=== PATIENT | female | born 1985 | race Caucasian/White ===

== ENCOUNTER → 2016-05-22 | Outpatient (CLI) | payer OTHER ==
[~2016-05-22] MED LIST: AZIT-60 PO; DICY1TAB25 PO; HYDR-5688 PO; IBUP-103 PO; OMEP20CA59 PO; PRED20TA PO; ZFRODT/8 SL
== END | disposition home or self-care (01) ==
LOC: C.PATHSPEC 17:05
PROVIDERS: ATTEND Plastic Surgery
DX: L82.1 Other seborrheic keratosis (principal)

== ENCOUNTER → 2016-06-18 | Outpatient (CLI) | payer OTHER | END | disposition home or self-care (01) | LOC: C.LABSPEC 14:49 | PROVIDERS: ATTEND Family Medicine | DX: J02.9 Acute pharyngitis, unspecified (principal) ==

== ENCOUNTER 2016-11-05 11:31 | Emergency (ER) | payer OTHER ==
[~2016-11-05] VITALS: Ht 154.9 cm; Wt 84.5 kg
[~2016-11-05 11:31] MED LIST changes: -AZIT-60 PO; -HYDR-5688 PO; -IBUP-103 PO; -PRED20TA PO
[2016-11-05 11:34] VITALS: BP 141/99; PULSE 109; TEMP 36.7; O2SAT 96; Ht 154.9 cm; Wt 84.5 kg
[2016-11-05] MEDS ORDERED: HYDR-5688 PO ×2 (12:17→12:44)
[2016-11-05] MEDS ORDERED: PRED20TA PO (12:17)
[2016-11-05] MEDS ORDERED: AZIT250T5 PO (12:17)
--- NOTE | 2016-11-05 12:19 | EMERGENCY ROOM VISIT NOTE ---
History First contact with patient: 12:00 Chief Complaint: EAR PAIN Stated Complaint: BOTH EARS ARE COMPLETELY SHUT/SWOLLEN History of Present Illness The patient is a 31 year old female who presents to the Emergency Room via private vehicle accompanied by mother with complaints of "both ears are completely shut/swollen". The patient states she has a history of plaque psoriasis, and notes that yesterday she developed bilateral pain/discomfort in her ears. She points to the general here region as a location of pain that she rates as a 9/10. She states this feels identical to an episode she had in August , and was seen by her family doctor and it was found to be from psoriasis. She states now her hearing is also slightly muffled. She states she is placed upon antibiotics, steroids, nausea as well as pain meds at that time. She denies any submersion in water, fevers, ear trauma. Review of Systems A complete 6-point Review of Systems was discussed with the patient, with pertinent positives and negatives listed in the History of Present Illness. All remaining Review of Systems questions can be considered negative unless otherwise specified. Past Medical/Surgical History Medical Problems: (1) Appendectomy (2) Asthma (3) Clostridium difficile infection (4) Dilation and curettage (5) ovarian cysts (6) Psoriasis (7) Tonsillectomy Family History Cancer Diabetes mellitus Heart disease Kidney disease Kidney stones Social History Smoking Status: Never Smoker Alcohol Use: occasionally Drug Use: none Marital Status: single Housing Status: other Occupation Status: employed Current/Historical Medications Scheduled Azithromycin (Zithromax), 1 PKT PO UD Prednisone (Prednisone), 0 PO DAILY Scheduled PRN Hydrocodone/Acetaminophen 5MG/325MG ([place] 5MG/325MG), 1-2 TABLET PO Q6 PRN for Pain Ibuprofen Tab (Advil), 800 MG PO UD PRN for Pain Physical Exam Vital Signs Date Time Temp Pulse Resp B/P (MAP) Pulse Ox O2 Delivery O2 Flow Rate FiO2 11/05/16 11:34 36.7 109 18 141/99 96 Room Air Physical Exam VITAL SIGNS - Vital signs and nursing notes were reviewed. Afebrile, hypertensive 141/99, tachycardic rate of 109 bpm, and is saturating well on room air 96%. GENERAL -31-year-old female appearing her stated age who is in no acute distress. Communicates well with provider and answers questions appropriately. SKIN - there is evidence of plaque on the patient's left arm, and also around her ears bilaterally. There is also intra ear canal plaque development. HEAD - NC/AT. EYES - PERRL with EOMI bilaterally. Sclera anicteric. Palpebral conjunctiva pink and moist with no injection noted. EARS - there is plaque development around the ears, there is no mastoid tenderness bilaterally. There is tenderness upon insertion of the speculum into the ear canals. There is evidence of plaque development of any internal ears. TMs unremarkable. No cerumen. No evidence of otitis externa. No evidence of inspection. NOSE - Midline and without cyanosis. No epistaxis or purulent drainage noted. Septum midline without deviation or septal hematoma noted. MOUTH/OROPHARYNX - Without perioral cyanosis. Buccal mucosa pink and moist and without leukoplakia. Tongue midline with equal elevation of palate bilaterally. No tonsillar hypertrophy, erythema, or exudates noted. Fair dentition noted. NECK - Neck with FROM. Supple to palpation. Minimal anterior cervical lymphadenopathy noted. No nuchal rigidity. No meningismus. LUNGS - Chest wall symmetric without accessory muscle use, intercostals retractions, or central cyanosis. Normal vesicular breath sounds CTA B/L. No wheezes, rales, or rhonchi appreciated. CARDIAC - RRR with S1/S2. No murmur, rubs, or gallops appreciated. EXTREMITIES - No clubbing or peripheral cyanosis. No pretibial edema present. + 5/5 strength noted in UE/LE bilaterally. NEUROLOGIC - Cranial nerves II through XII grossly intact. Sensory intact to light touch throughout. Patellar reflexes +2/4. PSYCH - A&Ox3 and cooperates fully with examiner. Pt is very pleasant and interacts well with examiner. Medical Decision & Procedures Medical Decision Patient was seen and evaluated as above. She presents to us today with spontaneous development of bilateral ear discomfort. It is unlikely this is otitis externa or otitis media. She is a history of plaque psoriasis since the age of 16. She does not take any chronic medications for this. She does have visual plaques on the left arm, and around the ears. Intra-ear canal inspection does reveal that she is likely experiencing plaque development inside the ear canals. There is no evidence of otitis media or externa. There is no mastoid tenderness. There is also bilateral anterior cervical lymphadenopathy, without evidence of throat infection. No evidence of meningitis or encephalitis upon my examination. She'll be treated with prednisone for the psoriasis, but also a Z-Jose in case there is underlying infection of which I do not want to exacerbate with the prednisone. She will also be given a short course of pain medication, as she does appear to be extremely uncomfortable on examination of the ears. It is important that she is nontoxic upon my overall examination. I was notified by [facility] that they do not have the prescription of [place], therefore this was canceled and sent to the [facility]'s pharmacy. The patient is to follow-up with her family doctor. She is to return with worsening. The patient was educated upon worrisome symptoms in which to return, had questions prior to discharge, and was discharged home in good condition. In evaluation treatment this patient following differential diagnoses were entertained: Meningitis, encephalitis, mastoiditis, otitis media, otitis externa , plaque psoriasis exacerbation, among others. [place] Drug Monitoring Program Search Results: patient reviewed within database, no issues identified Impression Primary Impression: Discomfort of both ears Additional Impression: Plaque psoriasis Departure Information Dispostion Home / Self-Care Condition GOOD Prescriptions Hydrocodone/Acetaminophen 5MG/325MG ([place] 5MG/325MG) Tab 1-2 TABLET PO Q6 Y for Pain, #10 TAB For Initial Treatment Prov: Eagle Rai PA-C 11/05/16 Azithromycin (ZITHROMAX) 250 Mg Tab 1 PKT PO UD for 5 Days, #6 TAB Prov: Eagle Rai PA-C 11/05/16 Prednisone (Prednisone) 20 Mg Tab 0 PO DAILY, #18 TAB 3 DAILY FOR 3 DAYS, THEN 2 DAILY FOR 3 DAYS, THEN 1 DAILY FOR 3 DAYS. Prov: Eagle Rai PA-C 11/05/16 Referrals Frank Berg M.D. (PCP) Patient Instructions [facility] Additional Instructions You have been treated in the Emergency Department for an ear pain that is likely coming from psoriasis You were prescribed azithromycin to be taken as directed which is 500 mg on day one, and 250 mg on days 2 through 5.. This is an antibiotic. All antibiotics have the potential to cause diarrhea. Stop this medication and contact a medical provider if you were to develop any significant adverse side effects including: wheezing, shortness of breath, passing out, vomiting, or a diffuse rash. Always take antibiotics as directed and COMPLETE the ENTIRE course regardless of the improvement of your symptoms. You have been prescribed Prednisone.. This is an anti-inflammatory medicine to be used to help minimize your symptoms. You should take the COMPLETE course of the medication. You have been prescribed [place] please do not drive while taking this pain medication. This is for at night to help sleep with the pain. For pain and fever control, you can use the following [id number] medicines : - Regular strength (325mg/tab) Tylenol (acetaminophen) 2 tabs every 4-6 hours as needed. Do not exceed 12 tablets in a 24 hour period. Avoid taking more than 3 grams (3000 mg) of Tylenol per day. This includes any other sources of acetaminophen you may take on a regular basis. Please do not take with [place]. - Regular strength (200 mg/tab) Advil (ibuprofen) 1-2 tabs every 4-6 hours as needed. Do not exceed a dose of 3200 mg per day. You should follow-up with your Primary Care Provider from today's Emergency Department visit. Please call them to schedule an appointment for soon as possible. Return to the emergency department if you develop the following symptoms despite treatment course outlined above: headache, fever, intractable pain, increased redness, swelling, or purulent discharge. Please return to emergency department with any new/concerning symptoms. Problem Qualifiers
[2016-11-05] MEDS ORDERED: IBUP-103 PO (12:24)
== END 2016-11-05 12:24 | disposition home or self-care (01) ==
LOC: C.EDB 11:33 → C.EDD 12:24
DX: H92.03 Otalgia, bilateral (principal); L40.0 Psoriasis vulgaris; J45.909 Unspecified asthma, uncomplicated; Z80.9 Family history of malignant neoplasm, unspecified; Z83.3 Family history of diabetes mellitus; Z82.49 Family history of ischemic heart disease and other diseases of the circulatory system; Z84.1 Family history of disorders of kidney and ureter

== ENCOUNTER → 2017-04-23 | Outpatient (CLI) | payer OTHER ==
[~2017-04-23] MED LIST changes: -DICY1TAB25 PO; +HYDR-5688 PO; +IBUP-103 PO; -OMEP20CA59 PO; +PRED20TA PO; -ZFRODT/8 SL
== END | disposition home or self-care (01) ==
LOC: C.LAB 15:11
PROVIDERS: ATTEND Family Medicine
DX: J02.9 Acute pharyngitis, unspecified (principal)